=== PATIENT | female | born 1945 | race Caucasian/White ===

== ENCOUNTER 2023-05-22 16:04 | Emergency (ER) | payer OTHER, SELFPAY ==
[2023-05-22] VITALS (16 sets, daily range): BP systolic 119–154; BP diastolic 70–89; PULSE 66–74; RESP 9–18; TEMP 36.4; O2SAT 98–100; BMI 24.2
--- NOTE | 2023-05-22 16:17 | CRLHL7_ITS ---
For Patients: As a result of the Century Cures Act, medical imaging exams and procedure reports are released immediately into your electronic medical record. You may view this report before your referring provider. If you have questions, please contact your health care provider. INDICATION: Fall, pain COMPARISON: None. TECHNIQUE: Three views left wrist. FINDINGS: BONES: Left distal radial fracture. There is a transverse component as well as a component that extends into the radial articular surface. No significant articular surface step-off or gap. The transverse fracture is proximal to the distal radioulnar articulation. There is apex volar angulation with reversal of the normal volar inclination of the radius. Radial inclination is flattened. There are no other fractures. Osteopenia. No focal bone lesion. JOINT: Normal wrist joint alignment. 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 No erosions seen. Soft Tissues: Normal. No foreign body. IMPRESSION: Displaced/angulated left distal radial fracture with extension into the radiocarpal articulation but no significant articular step-off or gap. Dictated by Trupti Hendricks MD @ 05/22/2023 5:29:14 PM (Electronically Signed)
--- NOTE | 2023-05-22 17:32 | CRLHL7_ITS ---
For Patients: As a result of the Century Cures Act, medical imaging exams and procedure reports are released immediately into your electronic medical record. You may view this report before your referring provider. If you have questions, please contact your health care provider. INDICATION: Fracture post reduction. TECHNIQUE: Intraoperative C-arm fluoroscopy. IMPRESSION: Intraoperative C-arm fluoroscopy was provided. Bones appear in satisfactory alignment post reduction. Fluoroscopy time 12 seconds. 3 images were captured. Dictated by Nate Frederick MD @ 05/22/2023 7:05:20 PM (Electronically Signed)
--- NOTE | 2023-05-22 17:34 | ED_ITS ---
HPI - General Adult General Date Seen: 05/22/23 Chief complaint: Extremity Pain/Injury, Upper Stated complaint: fell on L wrist Time Seen by Provider: 05/22/23 17:17 History of Present Illness HPI narrative: This is a 77-year-old generally healthy female who presents to the ER today for evaluation of left wrist pain, swelling, and deformity after a mechanical trip and fall that occurred this afternoon. She is generally healthy. She does have a couple of previous forearm fractures. She has had a follow-up bone density scan in been told that she has fairly good bone density with a less than 1% chance of hip fracture. She is not sure why she has had previous arm fractures. She does not have any other chronic medical conditions. She takes no medications and has no allergies. She went wore for a walk today with her son was careful to avoid slipping on the ice. She was visiting a new neighbor today. She was walking into her new neighbors sunken living room when she missed her steps when she was stepping down to the living room. She fell onto a padded carpet and caught her weight onto her outstretched left hand. She heard a crack. She has had visible swelling and deformity at the wrist since then. Although her wrist is deformed it is not particularly painful. No associated numbness or tingling. No other injuries such as elbow pain, shoulder pain, collarbone injury. She last a pie at about 1:00 a.m. today and had a small sip of water with a couple of nuts at 3:30 . She has no history of heart or lung disease or heart attack. No history of anesthesia complications. She will be able to call her son to give her a ride home.. Related Data Home Medications Medication Instructions Recorded Confirmed No Known Home Medications 05/22/23 05/22/23 Allergies Allergy/AdvReac Type Severity Reaction Status Date / Time No Known Drug Allergies Allergy Verified 05/22/23 16:18 PFSH PFSH Social History Smoking Status: Never smoker Do you use any of these nicotine containing products: None Second hand tobacco smoke exposure: No How often do you have a drink containing alcohol: never How often do you have six or more drinks on one occasion: Never AUDIT-C Alcohol total score: 0 Non-prescribed substance use: denies use service: No Exam Narrative: Exam Narrative: Constitutional: Appears well-developed and well-nourished. Alert. Conversant. Non toxic. HENT: Head: Atraumatic. Nose: Nose normal. Mouth/Throat: Oral mucosa is clear and moist. no trismus. Pharynx normal. Tonsils symmetric. No tonsillar enlargement, erythema, or exudate. Mallampati class 2 Eyes: Conjunctivae normal. EOM normal. Pupils equal, round, and reactive to light. No scleral icterus. Neck: Normal range of motion. Full extension. Neck supple. No tracheal deviation present. Cardiovascular: Normal rate, regular rhythm. No gallop. No friction rub. No murmur heard. Symmetric radial artery pulses Pulmonary/Chest: Effort normal. No stridor. No respiratory distress. No wheezes. No rales. No rhonchi . No tenderness. Abdominal: Soft. Bowel sounds normal. No distension. No mass. No tenderness. No rebound. No guarding. Musculoskeletal: RUE: Normal range of motion. No tenderness. No deformity LUE: Clavicle, shoulder, humerus, elbow are nontender. Although wrist is somewhat painful she has normal range of motion in the shoulder and elbow. Proximal forearm is nontender. Pronation/supination of the forearm is limited by wrist pain. She has visible swelling concerning for possible Colles fracture in the left wrist. Intact radial, median, ulnar nerve sensory and motor function. Thumb, body of the hand, fingers are nontender. Strong radial pulse. Normal distal capillary refill. RLE: Normal range of motion. No edema. No tenderness. No deformity LLE: Normal range of motion. No edema. No tenderness. No deformity Neurological: Alert and oriented to person, place, and time. Normal strength. CN II-VII intact. No sensory deficit. GCS eye subscore is 4. GCS verbal subscore is 5. GCS motor subscore is 6. Normal coordination Skin: Skin is warm and dry. No rash noted. No pallor. Normal capillary refill. Psychiatric: Normal mood. Normal affect. Very polite. Const: Vital Signs, click to edit/add: Vital Signs - 24 hr 05/22/23 16:18 05/22/23 17:54 05/22/23 17:54 Temperature 97.6 F Pulse Rate 66 Pulse Rate [Right Pulse Oximeter] 66 Respiratory Rate 16 Blood Pressure 142/82 H Blood Pressure [Ri ght Upper Arm] 150/81 H Pulse Oximetry 98 98 98 Oxygen Delivery Me thod Room Air Room Air 05/22/23 17:55 05/22/23 18:00 05/22/23 18:03 Temperature Pulse Rate 68 Pulse Rate [Right Pulse Oximeter] Respiratory Rate 14 18 Blood Pressure 146/89 H Blood Pressure [Ri ght Upper Arm] Pulse Oximetry 98 Oxygen Delivery Me thod 05/22/23 18:15 05/22/23 18:22 05/22/23 18:23 Temperature Pulse Rate 74 Pulse Rate [Right Pulse Oximeter] Respiratory Rate 15 9 L 14 Blood Pressure 153/83 H 154/88 H Blood Pressure [Ri ght Upper Arm] Pulse Oximetry 100 Oxygen Delivery Me thod 05/22/23 18:27 05/22/23 18:30 05/22/23 18:32 Temperature Pulse Rate 69 69 70 Pulse Rate [Right Pulse Oximeter] Respiratory Rate Blood Pressure 140/75 H 119/70 Blood Pressure [Ri ght Upper Arm] Pulse Oximetry 100 99 99 Oxygen Delivery Me thod 05/22/23 18:36 05/22/23 18:42 05/22/23 18:45 Temperature Pulse Rate 69 71 69 Pulse Rate [Right Pulse Oximeter] Respiratory Rate Blood Pressure 128/74 137/79 Blood Pressure [Ri ght Upper Arm] Pulse Oximetry 98 99 98 Oxygen Delivery Me thod 05/22/23 18:47 05/22/23 19:02 Temperature Pulse Rate 68 Pulse Rate [Right Pulse Oximeter] Respiratory Rate Blood Pressure 137/76 144/87 H Blood Pressure [Ri ght Upper Arm] Pulse Oximetry 100 Oxygen Delivery Me thod Course Vital Signs Vital signs: Initial Vital Signs Temperature 97.6 F 05/22/23 16:18 Temperature Source Temporal Artery Scan 05/22/23 16:18 Pulse Rate 66 05/22/23 16:18 Pulse Rhythm Regular 05/22/23 16:18 Respiratory Rate 16 05/22/23 16:18 Blood Pressure 150/81 H 05/22/23 16:18 Blood Pressure Mean 104 05/22/23 16:18 Blood Pressure Position Sitting 05/22/23 16:18 Pulse Oximetry 98 05/22/23 16:18 Oxygen Delivery Method Room Air 05/22/23 16:18 Vital Signs Temperature 97.6 F 05/22/23 16:18 Pulse Rate 66 05/22/23 16:18 Respiratory Rate 16 05/22/23 16:18 Blood Pressure 150/81 H 05/22/23 16:18 Pulse Oximetry 98 05/22/23 16:18 Oxygen Delivery Method Room Air 05/22/23 16:18 Temperature 97.6 F 05/22/23 16:18 Pulse Rate 68 05/22/23 18:47 Respiratory Rate 14 05/22/23 18:23 Blood Pressure 144/87 H 05/22/23 19:02 Pulse Oximetry 100 05/22/23 18:47 Oxygen Delivery Method Room Air 05/22/23 17:54 Medications Administered Medications: Discontinued Medications Generic Name Dose Route Start Last Admin Trade Name Luca PRN Reason Stop Dose Admin Ketorolac Tromethamine 15 mg 05/22/23 17:32 05/22/23 17:57 Ketorolac 15 Mg/Ml Inj IVP 05/22/23 17:33 15 mg ONCE ONE Administration Propofol 200 mg 05/22/23 17:32 05/22/23 18:22 Propofol 10 Mg/Ml Inj IVP 05/22/23 17:33 70 mg ONCE ONE Administration Medical Decision Making [facility] Narrative Medical decision making narrative: Very pleasant 77-year-old female presents to the ER today with an isolated left wrist fracture that occurred during a mechanical trip and fall at her friend's house today. X-rays and exam confirm a dorsally displaced, dorsally angulated distal radius fracture. Fortunately she is neurovascularly intact. This is a closed injury. Discussed with Orthopedics. They recommend that we attempt a closed reduction here in the ER. If we can achieve an anatomic reduction we may be able to avoid ORIF. Patient underwent procedural sedation by Dr. Lozano and I performed the procedural duction here in the ER. Based on C-arm imaging we were able to get good reduction of the distal radius fragment. Patient was placed into a sugar- tong splint. She had no complications from the sedation. After sedation she was alert, oriented, answering questions. Plan will be discharge home with splint in place. Sling for elevation. Patient will ice her fracture as discussed. Splint care instructions. She will follow- up with orthopedic in clinic within the next 2-4 days for re-evaluation. Precautions for return to the ER reviewed. Prescription for Brookesmith provided that she will use if she has pain uncontrolled by [id number] pain medications. Imaging Data XR left wrist: Attestation: I have reviewed the pertinent imaging results. Radiologist's impression: IMPRESSION: Displaced/angulated left distal radial fracture with extension into the radiocarpal articulation but no significant articular step-off or gap. Discharge Plan Discharge Clinical Impression: Fracture of wrist Patient Disposition: Home, Self-Care Condition: Stable Instructions: Wrist Fracture in Adults (ED), Splint Care (ED) Additional Instructions: Please call the [facility] tomorrow to arrange an ER follow-up visit for within 3-4 days. Call [phone]. Keep her splint clean and dry. Keep your arm elevated in the sling when you are up and around. Try to rest her arm on a pillow while he was sleeping in bed. Use ice for 20 minutes every 3 hours to help reduce swelling of your wrist. Use Tylenol or ibuprofen if needed for pain. Use prescription pain [id number] needed for severe pain. Be careful, because Brookesmith causes drowsiness, sedation, constipation, and can be addictive. If you have worsening or uncontrolled pain, numbness in your hand, or any problems, return to ER immediately. Prescriptions: No Action No Known Home Medications Follow Up/Referrals: Provider,Not a Local [Primary Care Provider] - Stand Alone Forms: [employer] Info Instructions Procedures Orthopedic Fracture Reduction Left distal radius/wrist fracture: Written consent by: patient Time Out Performed: Yes Side: left Fracture location: radius Analgesia: procedural sedation Technique: direct manipulation Post Reduction X-rays Demonstrate: anatomical reduction (Intra procedure C-arm was used with lateral and AP views to confirm near anatomic alignment of the distal radius fragment.) Post-reduction neuro exam: intact Post-reduction vascular exam: intact Splint Applied: Yes Patient Tolerated Procedure: well and no complications Orthopedic Splinting/Casting Left arm sugar-tong forearm splint: Side: left Upper Extremity Injury Location: wrist Upper extremity immobilizer: sugar tong splint
[2023-05-22] MEDS: KETOROLAC 15 MG/ML inj IVP (17:57)
--- NOTE | 2023-05-22 18:14 | ED.NURSE ---
is ready for conscious sedation. consent signed. dr figueroa here. c arm is here.
[2023-05-22] MEDS: PROPOFOL 10 MG/ML INJ 200 MG IVP (18:22)
--- NOTE | 2023-05-22 19:42 | PC.NURSE ---
patient DC ambulatory and in no distress, pain controlled, no further questions about DC instructions. son here to give patient a ride.
== END 2023-05-22 19:41 | disposition home or self-care (01) ==
PROVIDERS: Emergency Provider Emergency Medicine
DX: S52.502A Unspecified fracture of the lower end of left radius, initial encounter for closed fracture (principal); W01.0XXA Fall on same level from slipping, tripping and stumbling without subsequent striking against object, initial encounter
CPT/HCPCS: 25605; 73100; 73110; 76000; 99156; 99284; J1885; J2704

== ENCOUNTER 2023-08-10 01:19 | Emergency (ER) | payer OTHER, SELFPAY ==
[2023-08-10 01:25] VITALS: BP 165/91; PULSE 77; RESP 18; TEMP 36.7; O2SAT 99; BMI 24.2
--- NOTE | 2023-08-10 01:28 | ED.GENADULT ---
HPI - General Adult General Chief complaint: Syncope/Fainted Stated complaint: fainted, hit head Time Seen by Provider: 08/10/23 01:25 History of Present Illness HPI narrative: CC: Syncope pt. was standing in the kitchen when she felt lightheaded and passed out. denies n/v, diarrhea, fevers. no laceration noted. tender to palpation. gcs 15. pt. didn't want to come in but said she should get checked out. 78-year-old woman presenting to the emergency department after apparent syncopal event and head injury. Apparently came to fairly quickly. Has been turn to see the after affect of the fall hearing a noise. She says she started to feel herself getting lightheaded while standing at the sink, as if she was about to pass out, and then she did. Believe she struck the right side of her head on the counter/[place] on her way down. No other pain complaints. Right head is little tender to touch. Denies neck or back pain. No difficulty breathing. No chest pain. No abdominal pain. No injury to extremities other than that evident by recent brace that she has on her left wrist for a wrist fracture. Is not typically prone to falls. The prior event was a trip and fall. She denies any sense of palpitations or irregular heartbeats. She does admit that is experiencing little dysuria currently. No fevers. Her suspicion is ?postprandial hypotension? as she had had a large meal burgers and fries and whatnot about half an hour prior to this event. She has noted recently that gained 5 lb and so now the start of lent was anticipating starting a diet but really had gotten started yet today. She does feel that she stayed well hydrated over the course the day with coffee and soda. Rather active day going to appointments. She is accompanied here by her and son. Related Data Home Medications Medication Instructions Recorded Confirmed No Known Home Medications 05/22/23 08/10/23 Allergies Allergy/AdvReac Type Severity Reaction Status Date / Time No Known Drug Allergies Allergy Verified 08/10/23 01:29 Review of Systems Status of ROS: Reports: 6 or more systems reviewed and unremarkable except as noted in History and below [facility] Medical History Fracture of distal end of right radius ?S52.501A - Unspecified fracture of the lower end of right radius, initial encounter for closed fracture (ICD-10) Encounter for screening for severe acute respiratory syndrome coronavirus 2 (SARS-CoV-2) infection ?Z11.52 - Encounter for screening for COVID-19 (ICD-10) Surgical History History of appendectomy ?Z90.49 - Acquired absence of other specified parts of digestive tract (ICD-10) History of open reduction and internal fixation (ORIF) procedure (07/13/21) ?Z98.890 - Other specified postprocedural states (ICD-10) Social History Smoking Status: Never smoker Do you use any of these nicotine containing products: None Second hand tobacco smoke exposure: No How often do you have a drink containing alcohol: never How often do you have six or more drinks on one occasion: Never AUDIT-C Alcohol total score: 0 Non-prescribed substance use: denies use service: No Exam Narrative: Exam Narrative: Very pleasant. Of good energy. Skin is warm and dry. Brace on left wrist. Moving all extremities without difficulty. She is well-perfused peripherally. No evidence of injury other than to her head where there is a broad mild swelling somewhat linear in nature tender at the right parietal to frontal scalp. 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 No fluid in ear canals. Neck is supple nontender. Back nontender without deformities. No pain to palpation over the shoulders or clavicles. Heart in regular rate and rhythm appears to be without murmur rub or gallop. Abdomen is protuberant soft and nontender. GCS of 15. Speaking fluidly. Cranial nerves 2-12 are intact. There is no nystagmus with eye movements and eye movements are full. Pupils are equal at approximately 3 mm. Generally hazy from apparent cataracts bilaterally. Const: Vital Signs, click to edit/add: Vital Signs - 24 hr 08/10/23 01:25 08/10/23 02:02 Temperature 98.0 F Pulse Rate [Right Pulse Oximeter] 77 Pulse Rate [orthos tatic lying] 71 Pulse Rate [orthos tatic sitting] 75 Pulse Rate [orthos tatic standing] 81 Respiratory Rate 18 Blood Pressure [Ri ght Upper Arm] 165/91 H Blood Pressure [or thostatic lying] 138/83 Blood Pressure [or thostatic sitting] 136/78 Blood Pressure [or thostatic standing ] 120/79 Pulse Oximetry 99 Oxygen Delivery Me thod Room Air Documenting provider has reviewed patient's vital signs: yes Course Vital Signs Vital signs: Initial Vital Signs Temperature 98.0 F 08/10/23 01:25 Temperature Source Temporal Artery Scan 08/10/23 01:25 Pulse Rate 77 08/10/23 01:25 Pulse Rhythm Regular 08/10/23 01:25 Pulse Strength 3+ Normal 08/10/23 01:25 Respiratory Rate 18 08/10/23 01:25 Blood Pressure 165/91 H 08/10/23 01:25 Blood Pressure Mean 115 H 08/10/23 01:25 Blood Pressure Position Sitting 08/10/23 01:25 Pulse Oximetry 99 08/10/23 01:25 Oxygen Delivery Method Room Air 08/10/23 01:25 Vital Signs Temperature 98.0 F 08/10/23 01:25 Pulse Rate 77 08/10/23 01:25 Respiratory Rate 18 08/10/23 01:25 Blood Pressure 165/91 H 08/10/23 01:25 Pulse Oximetry 99 08/10/23 01:25 Oxygen Delivery Method Room Air 08/10/23 01:25 Temperature 98.0 F 08/10/23 03:35 Pulse Rate 72 08/10/23 03:35 Respiratory Rate 18 08/10/23 03:35 Blood Pressure 128/72 08/10/23 03:35 Pulse Oximetry 99 08/10/23 03:33 Oxygen Delivery Method Room Air 08/10/23 03:33 Medical Decision Making MDM Narrative Medical decision making narrative: As noted did discuss IV hydration. She is not sure that she would need this has she been trying to keep up with fluids today. Will check orthostatics and let symptoms and pressures be guided as to whether not will place an IV. Otherwise will check chemistries. Certainly this could have been arrhythmia or ischemic cardiogenic syncope of some sort. Anemia? No history of seizures. No seizure-like activity today. I am inclined to believe what she said in the setting of a busy day and having just eaten a good size medial got lightheaded. Further precipitated perhaps by infectious etiology. Does not have respiratory symptoms or abdominal discomfort but dysuria as noted above. Will also CT head looking for any evidence of bleed. I did discuss potential imaging also of the C-spine but to does not feel that this would be likely necessary. I review orthostatics which are not positive. Patient reported to be asymptomatic. Head CT reviewed by me looks to be absent of any acute intracranial abnormality/injury. Monitored without further event in the emergency department. Labs are wholly unremarkable. See patient discharge plan Medical Records Medical records reviewed: Yes I reviewed the patient's medical records Lab Data Lab results reviewed: Yes I reviewed the patient's lab results Labs: Lab Results 08/10/23 08/10/23 Range/Units 02:10 02:40 WBC 5.82 (4.50-11.00) K/uL RBC 4.51 (4.00-5.20) m/uL Hgb 13.3 (12.0-16.0) gm/dL Hct 40.3 (33.0-51.0) % MCV 89 (80-100) fL MCH 30 (26-34) pg MCHC 33 (32-36) gm/dL RDW Coeff of [place] 12.7 (11.5-15.5) % Plt Count 204 (140-440) K/uL Neut % (Auto) 63.2 (42.0-72.0) % Lymph % (Auto) 26.5 (20-44) % [place] % (Auto) 7.2 (0.0-11.0) % Eos % (Auto) 2.4 (0.0-7.0) % Baso % (Auto) 0.7 (0.0-3.0) % Neut # (Auto) 3.68 (1.7-7.0) K/uL Lymph # (Auto) 1.54 (0.90-2.90) K/uL [place] # (Auto) 0.40 (0.00-0.90) K/UL Eos # (Auto) 0.14 (0.00-0.50) K/uL Baso # (Auto) 0.04 (0.00-0.30) K/uL Abs Immat Gran (auto) 0.00 (0.00-0.30) K/uL Imm/Tot Granulo (auto) 0.0 % Sodium 140 (135-149) mmol/L Potassium 4.0 (3.6-5.1) mmol/L Chloride 108 (96-114) mmol/L Carbon Dioxide 24 (20-32) mmol/L Anion Gap 8 (7-15) mEq/L BUN 17 (7-30) mg/dL Creatinine 0.9 (0.5-1.5) mg/dL Estimated Creat Clear 44.10 Estimated GFR 66 ml/min Glucose 135 H (60-115) mg/dL Calcium 9.2 (8.4-10.6) mg/dL Troponin I < 0.01 L (0.01-0.04) ng/mL NT-Pro-B Natriuret Pep 50 pg/mL Urine Color Yellow (Yellow) Urine Appearance Clear (Clear) Urine pH 7.0 (5.0-8.5) Ur Specific [place] 1.015 (1.000-1.030) Urine Protein Negative (Negative) Urine Glucose (UA) Negative (Negative) Urine Ketones Negative (Negative) Urine Blood Trace-intact A (Negative) Urine Nitrite Negative (Negative) Urine Bilirubin Negative (Negative) Urine Urobilinogen 0.2 (0.2-1.0) Ur Leukocyte Esterase Trace A (Negative) Urine RBC 0-2 (0-2) Urine WBC 0-2 (0-5) Ur Squamous Epith Cells None (None-Few) Urine Bacteria None (None) POC Troponin I 0.00 L (0.01-0.04) ng/ml ECG Data Attestation: I personally reviewed and interpreted this ECG as follows: (Normal sinus rhythm rate of 77) Discharge Plan Discharge Clinical Impression: Closed head injury, Syncope Patient Disposition: Home w/ Parent or Adult Condition: Stable Additional Instructions: Consider applying cold pack to your head couple of times daily over the next few days. Return for unusual somnolence, severe increase in headache, repeated vomiting. Signs or symptoms of a concussion might be nausea or headache upon exertion which can also be an indication to back off that level of activity and reassess in a week.? Concussion can also be represented by smoldering nausea or smoldering headache, difficulty with concentration, mood lability, general somnolence, sense of persistent fog or dizziness/lightheadedness.? If these symptoms are becoming apparent and continuing beyond 7-10 days, be re-evaluated for further recommendations. Prescriptions: No Action No Known Home Medications Follow Up/Referrals: Provider,Not a Local [Referring] - Stand Alone Forms: MyHealth Info Instructions
[2023-08-10 01:45] VITALS: O2SAT 99
--- NOTE | 2023-08-10 01:51 | CT_ITS ---
Final Report Patient: ELÍAS DALE Facility:?[facility] Patient ID:?[id number] Site Patient ID:?[id number]. Site :?[id number] Study:?CT Head w/o-08/15/2023 12:59:29 AM Ordering Physician:?César Rosario Final Report: INDICATION: Syncope and closed head injury COMPARISON: none TECHNIQUE: A CT volumetric acquisition was performed of the brain without IV contrast. Please note that all CT scans at this facility use dose modulation, iterative reconstruction, and/or weight-based dosing when appropriate to reduce radiation dose to as low as reasonably achievable. FINDINGS: The CT images reveal a normal appearance of the cerebral ventricles and basal cisterns. There is no evidence of intracranial hemorrhage, tissue infarction or mass effect. The mastoid air cells and middle ear cavities are clear. The calvarium appears intact. There is normal aeration of the visualized paranasal sinuses. IMPRESSION: Negative head CT. Please note that all CT scans at this facility use dose modulation, iterative reconstruction, and/or weight-based dosing when appropriate to reduce radiation dose to as low as reasonably achievable. Dictated by César Cohen MD @ 08/15/2023 8:32:53 AM (Electronic Signature)
[2023-08-10 02:02] VITALS: BP 120/79; BP 136/78; BP 138/83; PULSE 71; PULSE 75; PULSE 81
[2023-08-10 02:21] LABS: Basophils Absolute Auto 0.04 K/uL (0.00-0.30); Basophils Percent Auto 0.7 % (0.0-3.0); Eosinophils Absolute Auto 0.14 K/uL (0.00-0.50); Eosinophils Percent Auto 2.4 % (0.0-7.0); Hematocrit 40.3 % (33.0-51.0); Hemoglobin* 13.3 gm/dL (12.0-16.0); Lymphocytes Absolute Auto 1.54 K/uL (0.90-2.90); Lymphocytes Percent Auto 26.5 % (20-44); Mean Corpuscular HGB Conc 33 gm/dL (32-36); Mean Corpuscular Hemoglobin 30 pg (26-34); Mean Corpuscular Volume 89 fL (80-100); Monocytes Percent Auto 7.2 % (0.0-11.0); Neutrophils Absolute Auto 3.68 K/uL (1.7-7.0); Neutrophils Percent Auto 63.2 % (42.0-72.0); Platelet Count* 204 K/uL (140-440); RDW Coefficient of Variation % 12.7 % (11.5-15.5); Red Blood Count 4.51 m/uL (4.00-5.20); White Blood Count* 5.82 K/uL (4.50-11.00)
[2023-08-10 02:25] LABS: Slide Review Reflex No
[2023-08-10 02:34] LABS: Chloride* 108 mmol/L (96-114); Sodium* 140 mmol/L (135-149)
[2023-08-10 02:37] LABS: Anion Gap 8 mEq/L (7-15); Blood Urea Nitrogen* 17 mg/dL (7-30); Carbon Dioxide* 24 mmol/L (20-32); Creatinine* 0.9 mg/dL (0.5-1.5); Estimated Glomerular Filt Rate 66 ml/min
[2023-08-10 02:38] LABS: Calcium* 9.2 mg/dL (8.4-10.6); Glucose* 135 mg/dL (60-115)
[2023-08-10 02:49] LABS: NT Pro B Type NatriureticPept* 50 pg/mL
[2023-08-10 02:50] LABS: Troponin I* < 0.01 ng/mL (0.01-0.04)
[2023-08-10 02:52] LABS: Appearance Urine Clear (Clear); Bilirubin Urine Negative (Negative); Blood Urine Trace-intact (Negative); Color Urine Yellow (Yellow); Glucose Urine Negative (Negative); Ketones Urine Negative (Negative); Leukocyte Esterase Urine Trace (Negative); Nitrite Urine Negative (Negative); Protein Urine Negative (Negative); Specific Gravity Urine 1.015 (1.000-1.030); Urobilinogen Urine 0.2 (0.2-1.0)
[2023-08-10 02:59] LABS: RBC Urine 0-2 (0-2); WBC Urine 0-2 (0-5)
[2023-08-10 03:33] VITALS: BP 128/72; PULSE 72; RESP 18; TEMP 36.7; O2SAT 99
[2023-08-10 03:35] VITALS: BP 128/72; PULSE 72; RESP 18; TEMP 36.7
== END 2023-08-10 03:36 | disposition home or self-care (01) ==
PROVIDERS: Emergency Provider Family Medicine; PCP Family Medicine
DX: R55 Syncope and collapse (principal); S09.90XA Unspecified injury of head, initial encounter; W18.39XA Other fall on same level, initial encounter
CPT/HCPCS: 36415; 70450; 80048; 81001; 83880; 84484; 85025; 87086; 93005; 94761; 99284; 99285

== ENCOUNTER 2023-08-22 14:45 | Outpatient (RCR) | payer OTHER, SELFPAY ==
--- NOTE | 2023-08-04 17:01 | OT.OPOE ---
OT Outpatient Ortho Eval OT Outpatient Ortho Eval* Start: 08/04/23 16:31 Freq: Status: Active Protocol: Document 08/04/23 16:33 LCN (Rec: 08/04/23 16:56 LCN [id number]) E-signed By Elli Sandoval, OTR/L, CLT OT OP Ortho Eval Details Complexity Complexity Low Insurance Information Insurance Information Medicare B Outpatient History/Precautions Current Condition/Medical Diagnosis Referring Provider Wendy León PA-C Treatment Diagnosis L radial fracture Date of Onset 05/22/23 Other Conditions Pt is very healthy, no medications. H/O distal radius fracture with minimal displacement, easy [id number] yrs ago ( icy skiing fall), R wrist fracture with icy driveway yrs ago with pins and stiffness, fairly good recovery. Medical/Functional History Medical History Reviewed Yes Prior Level of Function/Mobility Pt is a retired [employer]. She and her moved here 3 years ago with their son César who is 52 yrs old and is their primary resident care supervisor. ( has DM related amputation of a leg. Neither of them drives, so son does the driving, cooking , large maintenance finances and computer work. They have another son in [place]. Ortho Subjective Subjective Subjective Jessica is an active 78 yr old woman who enjoys reading, walking and drawing. She was touring a new friend's home in Apr 2023 and fell down a 4 inch step she missed, fell into out stretched hand and found to have fracture L distal radius. No head strike or LOC. Pt continues with mild to moderate wrist at end range of pronation and combined with finger grasp motions to curl her hair on R side w L. Per 08/01/23 xray, shows healing, extra-articular distal radius fracture with mild shortening and dorsal angulation, which measured approximately 20?. Radial inclination is maintained. Moderate degenerative changes of the radiocarpal and distal radioulnar joints with mild diffuse degenerative changes of the intercarpal joints. Guided by Wendy Lobo that she can wean off of brace during gentle daily tasks, then heavy tasks only and can progress weight lifting to 5-10#, weightbearing as guided by pain . Pain Assessment Pain Present Pain Present Pain Reported Location L distal radius Description Pressure,Dull, Achy,With Movement Intensity 3 Range of Motion and Strength Wrist Range of Motion and Strength Wrist Range of Motion and Strength All shoulder and elbow planes WNL. Supination to 80 of 90, pronation 110 of 140. WE to 65 of 65, WR FL to 35 of 58, RD to 10 of 25, UD to 45 of 45 . Has full fist, table top, flat fist and opposition. Not yet able to push up from chairs with L hand. Edema -- mounded over the distal ulnar styloid/TFCC area , pulls here while doing hair curling. Has been able to lift 28 oz cans with L hand, no pain. 2# weights are easy for her to move. Hand Pinch/Oracle Applications Developer Strength Hand Right Oracle Applications Developer Strength Position 1 (lbs) 60 Lateral Pinch Strength (lbs) 18 Three Point Pinch (lbs) 15 OT Problems Problems Problems Decreased Strength,Decreased Range of Motion,Decreased Dexterity,Pain,Lifting, Gripping,Pinching Other Problems Opening Containers,Dressing, Fasteners Patient Potential Excellent Assessment Assessment Assessment Given Jessica's?difficulty with mild stiffness, edema, pain, ROM and strength loss of L hand/wrist following her L distal radius fracture which is limiting daily tasks.She would benefit from skilled OT to address these areas. Occupational Therapy Treatment Plan - OP Set Goals Goals Set with Patient Yes Goals Goals In 8 weeks, [employer] will demonstrate:? 1) Decreased pn to <1/10 80% of the time with sustained gripping, carrying groceries, reading books and kitchen tasks. 2) I HEP for stretching, gradual strengthening and self mgmt strategies. 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 4)??Pt to be fit with functional bracing (for TFCC support if needed) and use adaptive strategies to protect joint integrity to support less pain with ADL. Treatment Plan Treatment Plan Evaluation,Edema Control,Joint Mobilization,Manual Therapy, Splinting,Therapeutic Exercise ,Self Care/Home Management, Education Expected Frequency 1x Week Expected Duration 6-8 Weeks Home Program Home Program Home Program Initiated Home Program Specifics SROM of WR EX, WR FL and pronation planes. Resume WR flexion, extension RD, UD and supination pronation hand weights. Gentle gripping in supinated/neutral and pronated positions. Recertification Information Recertification Information Initial Certification Date 08/04/23 Recertification Due Date 11/02/23 Provider Signature Shows Agreement With POC & Medical Necessity Physician Comment/Change Comment or Changes Physician NPI Number #
== END 2023-12-20 23:59 | disposition home or self-care (01) ==
PROVIDERS: Visit Provider Physician Assistant Surgical
DX: S62.102A Fracture of unspecified carpal bone, left wrist, initial encounter for closed fracture (principal); Z51.89 Encounter for other specified aftercare
CPT/HCPCS: 97110; 97140; 97165; 97535; X5282